=== PATIENT | female | born 1980 | race Caucasian/White ===

== ENCOUNTER 2017-06-28 22:27 | Emergency (ER) | payer OTHER ==
[2017-06-28 22:46] VITALS: BMI 26.6
--- NOTE | 2017-06-28 23:11 | PDOC ---
History of Present Illness - General Chief Complaint: SIRS, Suspected/Possible Stated Complaint: FATIGUE/ DIZZINESS Time Seen by Provider: 06/28/17 23:10 - History of Present Illness Initial Comments: Healthy 37 year old female presenting with fevers, chills, nausea, loss of appetite, and myalgias for the past day. She denies sick contacts and states that the symptoms presented suddenly without inciting event. Denies visual changes, recent ravel, recent woodland exposure, bug bites, rashes, or other exposure. She denies vomiting but has trouble eating food because of lack of appetite and feels very dehydrated, None of her three young children or have the same symptoms. She has no other past medical history. Of note, she just started menstruating which has exacerbated her symptoms. No chest pain, vomiting, urinary symptoms, palpitations, arthralgias, or other sick symptoms. 06/28/17 23:23 Past History - Past Medical History Allergies/Adverse Reactions: Allergies Allergy/AdvReac Type Severity Reaction Status Date / Time No Known Allergies Allergy Verified 06/28/17 22:46 Home Medications: Ambulatory Orders Cephalexin Monohydrate [Keflex -] 500 mg PO BID #14 capsule 06/29/17 Anemia: No Asthma: No Cancer: No Cardiac Disorders: No CVA: No COPD: No Dementia: No Diabetes: No Dialysis: No GI Disorders: No HTN: No Seizures: No Thyroid Disease: No - Surgical History Abdominal Surgery: No - Reproductive History (#): 1 Para: 0 Cervical CA: No Dysfunctional Uterine Bleeding: No Ectopic : No Endometrial CA: No Polycystic Ovaries: No Tubal Ligation: No - Immunization History Td Vaccination: Yes Immunization Up to Date: No - Psycho/Social/Smoking Cessation Hx Suicidal Ideation: No Smoking Status: No Smoking History: Never smoked Have you smoked in the past 12 months: No Number of Cigarettes Smoked Daily: 0 Information on smoking cessation initiated: No Hx Alcohol Use: Yes Drug/Substance Use Hx: No Substance Use Type: None Hx Substance Use Treatment: No Review of Systems - Review of Systems Constitutional: Yes: Chills, Fever, Loss of Appetite. No: Diaphoresis, Night Sweats, Weakness HEENTM: No: Blurred Vision, Recent change in vision Respiratory: No: Cough, Shortness of Breath Cardiac (ROS): No: Chest Pain, Irregular Heart Rate ABD/GI: Yes: Poor Appetite, Poor Fluid Intake. No: Constipated, Diarrhea, Difficulty Swallowing, Nausea : No: Dysuria, Discharge Integumentary: No: Erythema, Lesions, Lumps, Rash, Sweating Neurological: No: Headache, Paresthesia Psychiatric: Yes: Stressors *Physical Exam - Vital Signs Last Vital Signs Temp Pulse Resp BP Pulse Ox 99.6 F 118 H 16 105/49 100 06/28/17 22:41 06/28/17 22:41 06/28/17 22:41 06/28/17 22:41 06/28/17 22:41 - Physical Exam General Appearance: Yes: Nourished, Appropriately Dressed. No: Apparent Distress HEENT: positive: EOMI, EUGENIA, Normal ENT Inspection, Normal Voice Neck: positive: Trachea midline, Normal Thyroid, Supple. negative: Tender, Rigid Respiratory/Chest: positive: Lungs Clear, Normal Breath Sounds. negative: Chest Tender, Respiratory Distress, Accessory Muscle Use Cardiovascular: positive: Regular Rhythm, Tachycardia. negative: Regular Rate Gastrointestinal/Abdominal: positive: Normal Bowel Sounds, Flat, Soft. negative : Tender ED Treatment Course - LABORATORY CBC & Chemistry Diagram: 06/29/17 00:04 06/29/17 00:04 Medical Decision Making - Medical Decision Making 37 year odl female with myalgias, fevers, nausea, and chills for the past day. This is most likely a viral syndrome but , PNA, and urinary infection. CBC, CXR, Upreg, CMP, and UA will be sent. 06/28/17 23:36 CBC significant for WBC of 12.6 with left shift. UA significant for 3+ leuk esterase. CXR negative for infection. Feeling better after Tylenol 650, 1 L NS, and 1 G Rocephin, and Keflex bid 7 days. 06/29/17 01:52 *DC/Admit/Observation/Transfer Diagnosis at time of Disposition: UTI (urinary tract infection) - Discharge Dispostion Disposition: HOME Condition at time of disposition: Improved Admit: No - Prescriptions Prescriptions: Cephalexin Monohydrate [Keflex -] 500 mg PO BID #14 capsule - Patient Instructions Printed Discharge Instructions: DI for Urinary Tract Infection (UTI) Additional Instructions: You were seen for body aches, fevers, and chills with nausea. We believe that this is most likely a viral syndrome that should improve on its own. However, we found an infection in your urine that we will treat you for. Your chest x ray did not show infection and you were not . Please return if you do not get better within a few days. - Attestations Physician Attestion: Attested by Dr. Richardson 06/29/17 01:58
[2017-06-28] MEDS ORDERED: SODIUM CHLORIDE 1,000 ML IV STA (23:21)
[2017-06-28] MEDS ORDERED: ACETAMINOPHEN 325 MG TABLET (FP) PO ONE (23:30)
[2017-06-28] MEDS ORDERED: METOCLOPRAMIDE HCL INJECTION 10 MG/2 ML VIAL IVPUSH ONE (23:34)
--- NOTE | 2017-06-28 23:34 | PDOC ---
Attending Attestation - Resident Resident Name: DebraMillerkerlineharish - ED Attending Attestation I have performed the following: I have examined & evaluated the patient, The case was reviewed & discussed with the resident, I agree w/resident's findings & plan, Exceptions are as noted - HPI HPI: 06/28/17 23:31 37 yo F with no pmhx here with /co body aches, chills, fever, has cough last week. now headache. no sick contacts. no travelling. no rash. no mod factors. took tylenol earlier today, took motrin around 8 pm. no other c/o nasal congestion or sore throat. - Physicial Exam PE: 06/28/17 23:33 awake alert lungs clear heart rrr no mrg. abd soft nontender. mild cva tenderness. bilat. skin warm and dry no rash. no mod factor.s - Medical Decision Making 06/28/17 23:34 37 yo F with myalgia, fever, recent cough and nuasea. abd nontender. differential pna, uti, dehydration, viral syndrome. plan ua labs ivf, treat with reglan, ivf, and tylenol reassess. Heart Score/ECG Review #1 General ECG Interpretation: Sinus Rhythm (sinus tachycardia 111), Normal Rate, Normal Intervals, No acute ischemic changes (TWI III only)
[2017-06-28] MEDS ORDERED: METOCLOPRAMIDE HCL INJECTION 10 MG/2 ML VIAL ONE (23:48)
[2017-06-28] MEDS ORDERED: ACETAMINOPHEN 325 MG TABLET (FP) ONE (23:48)
[2017-06-29 00:24] LABS: BASOPHIL 0.3 % (0-2.0); MCHC 29.4 g/dl (32.0-36.0); MEAN CELL VOLUME 62.9 fl (80-96); MEAN PLT VOLUME 8.3 fl (7.5-11.1); NEUTROPHILS 94.9 % (42.8-82.8); PLATELET COUNT 253 K/MM3 (134-434); RDW 16.8 % (11.6-15.6); WHITE BLOOD COUNT 12.3 K/mm3 (4.0-10.0)
[2017-06-29 00:26] LABS: URINE APPEARANCE SLCLOUDY; URINE BILIRUBIN NEGATIVE (NEGATIVE); URINE BLOOD 2+ (NEGATIVE); URINE COLOR YELLOW; URINE GLUCOSE (UA) NEGATIVE (NEGATIVE); URINE KETONE TRACE (NEGATIVE); URINE NITRITE NEGATIVE (NEGATIVE); URINE UROBILINOGEN NEGATIVE mg/dL (0.2-1.0)
[2017-06-29 00:26] LABS: MCH 18.5 pg (25.7-33.7)
[2017-06-29 00:31] LABS: URINE LEUK ESTERASE 3+ (NEGATIVE); URINE PROTEIN 2+ (NEGATIVE)
[2017-06-29 00:35] LABS: URINE BACTERIA FEW /hpf (NONE SEEN); URINE HYALINE CAST 5 /lpf; URINE MUCUS MANY; URINE RBC 1 /hpf (0-3); URINE WBC 16 /hpf (3-5)
[2017-06-29 00:42] LABS: ALBUMIN 3.4 g/dl (3.4-5.0); BILIRUBIN,TOTAL 0.5 mg/dL (0.2-1.0); CALCIUM 8.3 mg/dL (8.5-10.1); CO2 22 mmol/L (21-32); CREATININE 0.7 mg/dL (0.55-1.02); GLUCOSE,RANDOM 127 mg/dL (74-106); SGOT/AST 12 U/L (15-37); SGPT/ALT 12 U/L (12-78); TOT PROT 6.5 g/dl (6.4-8.2)
[2017-06-29 00:51] LABS: ALK PHOS 116 U/L (45-117); ANION GAP 11 (8-16)
[2017-06-29 01:02] LABS: ANISOCYTOSIS 2+; HYPOCHROMIA 2+; MICROCYTOSIS 2+; PLATELET COMMENT2 NO CLOTTING DETECTED; PLATELET ESTIMATE ADEQUATE (NORMAL); POIKILOCYTOSIS 1+; POLYCHROMASIA 1+
[2017-06-29] MEDS ORDERED: CEFTRIAXONE 1 GM in DEXTROSE 5%-WATER - 100 ML IVPB ONE (01:07)
[2017-06-29] MEDS ORDERED: CEFTRIAXONE 50 ML ONE (01:25)
[2017-06-29 02:14] VITALS: BP 127/73; PULSE 105; TEMP 98
--- NOTE | 2017-06-29 12:06 | EKG ---
Test Reason : Blood Pressure : / mmHG Vent. Rate : 111 BPM Atrial Rate : 111 BPM P-R Int : 148 ms QRS Dur : 088 ms QT Int : 362 ms P-R-T Axes : 046 020 014 degrees QTc Int : 492 ms SINUS TACHYCARDIA NONSPECIFIC T WAVE ABNORMALITY T WAVE ABNORMALITY, CONSIDER ANTERIOR ISCHEMIA ABNORMAL ECG NO PREVIOUS ECGS AVAILABLE Confirmed by MD JAVAN, LISETH ([id number]) on 06/29/2017 12:05:43 PM Referred By: Confirmed By:LISETH EDOUARD MD
== END 2017-06-29 02:14 | disposition home or self-care (01) ==
LOC: JER 22:27
PROC: 3E03329 Introduction of Other Anti-infective into Peripheral Vein, Percutaneous Approach (ICD-10-PCS; principal; 2017-06-28)
PROC: 3E033GC Introduction of Other Therapeutic Substance into Peripheral Vein, Percutaneous Approach (ICD-10-PCS; 2017-06-28)
PROC: 3E0337Z Introduction of Electrolytic and Water Balance Substance into Peripheral Vein, Percutaneous Approach (ICD-10-PCS; 2017-06-28)
DX: N39.0 Urinary tract infection, site not specified (principal)
CPT/HCPCS: 36415; 71020-TC; 80053; 81003; 81015; 84703; 85025; 93005; 93010; 99284-25

== ENCOUNTER 2023-11-18 18:04 | Inpatient (IN) | payer OTHER ==
[2023-11-18] MEDS ORDERED: GLUCAGON 1 MG KIT ONE (18:41)
[2023-11-18] MEDS ORDERED: ONDANSETRON 4 MG/2 ML VIAL ONE (18:41)
[2023-11-18] MEDS: ONDANSETRON 4 MG/2 ML VIAL IVPUSH ONE (18:48)
[2023-11-18] MEDS: GLUCAGON 1 MG KIT IVPUSH ONE (18:48)
[2023-11-18 20:09] LABS: BASO % 0.2 % (0-2.0); EOS % 0.2 % (0-4.5); HEMATOCRIT 39.4 % (32.4-45.2); HEMOGLOBIN 12.4 GM/dL (10.7-15.3); LYMPH % 5.4 % (8-40); MCH 23.6 pg (25.7-33.7); MCHC 31.5 g/dl (32.0-36.0); MONO % 5.9 % (3.8-10.2); NEUT % 88.3 % (42.8-82.8); PLATELET COUNT 291 10^3/uL (134-434); RBC 5.26 M/mm3 (3.60-5.2); RDW 15.8 % (11.6-15.6); WHITE BLOOD COUNT 16.9 K/mm3 (4.0-10.0)
[2023-11-18 20:19] LABS: INR 1.09 (0.83-1.09); PROTHROMBIN TIME (PATIENT) 12.6 SEC (9.7-13.0)
[2023-11-18 20:24] LABS: POTASSIUM 3.5 mmol/L (3.5-5.1)
[2023-11-18 20:26] LABS: CALCIUM 9.1 mg/dL (8.5-10.1)
[2023-11-18 20:27] LABS: ALBUMIN 3.5 g/dl (3.4-5.0); BLOOD UREA NITROGEN 12.1 mg/dL (7-18)
[2023-11-18 20:30] LABS: BILIRUBIN,TOTAL 0.3 mg/dL (0.2-1); CREATININE 0.7 mg/dL (0.55-1.3)
[2023-11-18 20:32] LABS: TOT PROT 7.3 g/dl (6.4-8.2)
[2023-11-18] MEDS ORDERED: MIDAZOLAM HCL 2 MG/2 ML SINGLE DOSE VIAL ONE (20:38)
[2023-11-18] MEDS ORDERED: ONDANSETRON 4 MG/2 ML VIAL IVPUSH PRN ×2 (21:38→22:33)
[2023-11-18] MEDS ORDERED: LACTATED RINGERS SOLUTION 1,000 ML IV SCH (21:45)
[2023-11-19 00:03] VITALS: RESP 18; BMI 26.9
[2023-11-19 09:27] LABS: HEMATOCRIT 38.3 % (32.4-45.2); HEMOGLOBIN 11.9 GM/dL (10.7-15.3); MCH 23.8 pg (25.7-33.7); MCHC 31.1 g/dl (32.0-36.0); MEAN CELL VOLUME 76.6 fl (80-96); MEAN PLT VOLUME 8.8 fl (7.5-11.1); PLATELET COUNT 279 10^3/uL (134-434); RDW 15.8 % (11.6-15.6); WHITE BLOOD COUNT 8.5 K/mm3 (4.0-10.0)
[2023-11-19] MEDS: PANTOPRAZOLE 40 MG TABLET PO SCH (09:40)
[2023-11-19 09:52] LABS: POTASSIUM 4.6 mmol/L (3.5-5.1)
[2023-11-19 10:01] LABS: ANISOCYTOSIS 3+; MACROCYTOSIS 0
[2023-11-19 10:08] LABS: ALBUMIN 3.4 g/dl (3.4-5.0); CALCIUM 8.9 mg/dL (8.5-10.1)
[2023-11-19 10:10] LABS: BLOOD UREA NITROGEN 14.3 mg/dL (7-18); MAGNESIUM 2.1 mg/dL (1.8-2.4)
[2023-11-19 10:12] LABS: PHOSPHOROUS 3.6 mg/dL (2.5-4.9)
[2023-11-19 10:13] LABS: CREATININE 0.7 mg/dL (0.55-1.3)
[2023-11-19 10:14] LABS: BILIRUBIN,TOTAL 0.5 mg/dL (0.2-1); TOT PROT 7.2 g/dl (6.4-8.2)
[2023-11-19 14:45] VITALS: BP 122/63; PULSE 75; TEMP 98.1
== END 2023-11-19 15:30 | disposition home or self-care (01) | DRG 395 ==
LOC: JER 18:04 → JASUSAT 20:42 → J7W 22:57 → UNDOADMIN 22:58 → J7W 22:58 → JASUSAT 22:58 → J7W 22:58 → UNDODISIN 11-19 15:30
PROVIDERS: ADMIT Internal Medicine; ATTEND Internal Medicine Gastroenterology
PROC: 0DB58ZX Excision of Esophagus, Via Natural or Artificial Opening Endoscopic, Diagnostic (ICD-10-PCS; principal; 2023-11-18 20:30)
DX: T18.128A Food in esophagus causing other injury, initial encounter (principal); K44.9 Diaphragmatic hernia without obstruction or gangrene; K22.2 Esophageal obstruction; D50.9 Iron deficiency anemia, unspecified
CPT/HCPCS: 36415; 71045-TC-FY; 71250-TC; 80053; 83540; 83550; 83735; 84100; 84703; 85025; 85610; 86140; 86850; 86900; 86901; 88305-TC; 94760; 99285-25; G0378